=== PATIENT | female | born 1995 | race African-American/Black ===

== ENCOUNTER → 2016-12-05 | Outpatient (CLI) | payer OTHER ==
[2015-04-12 12:30] VITALS: BP 106/58
--- NOTE | 2016-12-05 14:26 | KCIC ---
EXAM: Obstetric sonogram. HISTORY: anatomy survey. TECHNIQUE: Sonographic imaging of a gravid uterus was performed. COMPARISON: None. FINDINGS: There is a single intrauterine fetus in cephalic presentation with a heart rate of 149 bpm. There is a posterior right lateral placenta without evidence of placenta previa. The amniotic fluid index is normal. The cervix measures 3.4 cm in length. The stomach, kidneys, bladder, brain, spine, extremities, facial profile, and heart are unremarkable. There is a three-vessel umbilical cord. There is body movement. The biparietal diameter corresponds with a gestational age of 18 weeks and 4 days. The head circumference corresponds with a gestational age of 18 weeks and 1 day. The abdominal circumference corresponds with a gestational age of 17 weeks and 5 days. The femoral length corresponds with a gestational age of 17 weeks and 6 days. The estimated gestational age based on combined ultrasound measurements is 18 weeks and 1 day and estimated weight is 8 ounces. IMPRESSION: Single intrauterine fetus with an estimated gestational age based on ultrasound measurements of 18 weeks and 1 day and heart rate of 149 bpm. Electronically signed by: Nicky Kothari MD (12/05/2016 2:23 PM) [place] [id number]
== END | disposition home or self-care (01) ==
LOC: KCIC US 13:23
PROVIDERS: ATTEND Obstetrics & Gynecology
DX: O26.842 Uterine size-date discrepancy, second trimester (principal); Z3A.18 18 weeks gestation of pregnancy
CPT/HCPCS: 76805

== ENCOUNTER 2018-08-01 02:49 | Emergency (ER) | payer OTHER ==
[~2018-08-01] VITALS: Ht 165.1 cm; Wt 95.3 kg
[~2018-08-01 02:49] MED LIST: DOCU-109 PO; IBUP-1060 PO; OXYC1TAB15 PO
[2018-08-01 03:22] LABS: BILIRUBIN,URINE NEGATIVE (NEG); CLARITY,URINE CLEAR; COLOR,URINE YELLOW; NITRITE,URINE NEGATIVE (NEG); PH,URINE 7.5; PROTEIN,URINE NEGATIVE (NEG-TRACE)
[2018-08-01 03:29] LABS: BASO % 0 % (0-3); EOS # 0.1 x10^3/uL (0.0-0.7); EOS % 1 % (0-3); HEMOGLOBIN 10.1 g/dL (12.0-15.5); LYMPH # 1.9 x10^3/uL (1.0-4.8); LYMPH % 20 % (24-48); MEAN CORPUSCULAR HEMOGLOBIN 21 pg (25-35); MEAN CORPUSCULAR HGB CONC 32 g/dL (31-37); MEAN CORPUSCULAR VOLUME 67 fL (79-100); MONO # 0.9 x10^3/uL (0.0-1.1); MONO % 9 % (0-9); NEUT # 6.6 x10^3uL (1.8-7.7); NEUT % 70 % (31-73); PLATELET COUNT 219 x10^3/uL (140-400); RED BLOOD COUNT 4.81 x10^6/uL (3.50-5.40); RED CELL DISTRIBUTION WIDTH 21.2 % (11.5-14.5); WHITE BLOOD COUNT 9.4 x10^3/uL (4.0-11.0)
[2018-08-01] MEDS ORDERED: IV NORMAL SALINE 1000ML BAG 1,000 ML IV SCH (03:30)
[2018-08-01] MEDS ORDERED: ONDANSETRON PF 4 MG/2 ML VIAL. IV ONE (03:30)
[2018-08-01 03:34] LABS: CALCIUM 8.6 mg/dL (8.5-10.1); CREATININE 0.6 mg/dL (0.6-1.0); GFR 149.9; POTASSIUM 3.3 mmol/L (3.5-5.1)
[2018-08-01 03:38] LABS: AMORPHOUS SEDIMENT,UR PRESENT /HPF; BACTERIA,URINE MANY /HPF (0-FEW); SQUAMOUS EPITHELIAL CELL,UR MANY /LPF
[2018-08-01 03:40] LABS: ALBUMIN 3.1 g/dL (3.4-5.0); ALBUMIN/GLOBULIN RATIO 0.6 (1.0-1.7); TOTAL BILIRUBIN 0.3 mg/dL (0.2-1.0); TOTAL PROTEIN 8.1 g/dL (6.4-8.2)
--- NOTE | 2018-08-01 04:37 | PHYS DOC ---
Past Medical History Past Medical History: No Pertinent History Past Surgical History: No Surgical History Alcohol Use: None Drug Use: None Adult General Chief Complaint Chief Complaint: ABDOMINAL PAIN IN HPI HPI Patient is a 22-year-old female who presents with the complaint of lower abdominal pain, headache, nausea and diarrhea that started yesterday. Patient states that she is about 12 weeks . She states the pain is located in her lower abdomen in the bilateral adnexal regions. She describes pain as sharp and stabbing in nature in her pelvis but describes the headache as a dull ache. She rates her pain to be a 9 out of 10. She denies any fever, chest pain, shortness of breath or back pain. Review of Systems Review of Systems Constitutional: Denies fever or chills [] Respiratory: Denies cough or shortness of breath [] Cardiovascular: No additional information not addressed in HPI [] GI: Complains of lower abdominal pain with nausea and diarrhea [] : Denies dysuria or hematuria [] Musculoskeletal: Denies back pain or joint pain [] Neurologic: Complains of headache without focal weakness or sensory changes [] All other systems were reviewed and found to be within normal limits, except as documented in this note. Current Medications Current Medications Current Medications Medications (Trade) Dose Ordered Sig/Bran Start Time Stop Time Status Last Admin Dose Admin Nalbuphine HCl (Nubain) 10 mg 1X STAT 08/01/18 04:55 08/01/18 04:56 UNV 08/01/18 04:59 10 MG Nitrofurantoin Macrocrystals (Macrobid) 100 mg 1X ONCE 08/01/18 05:00 08/01/18 05:01 UNV Ondansetron HCl (Zofran) 4 mg 1X ONCE 08/01/18 03:30 08/01/18 03:31 DC 08/01/18 03:39 4 MG Sodium Chloride 1,000 ml @ 1,000 mls/hr Q1H 08/01/18 03:30 08/01/18 04:29 DC 08/01/18 03:40 1,000 MLS/HR Allergies Allergies Allergies Coded Allergies Type Severity Reaction Last Updated Verified amoxicillin Allergy Intermediate hives 05/10/17 Yes Physical Exam Physical Exam Constitutional: Well developed, well nourished, no acute distress, non-toxic appearance. [] HENT: Normocephalic, atraumatic, bilateral external ears normal, oropharynx moist, no oral exudates, nose normal. [] Eyes: PERRLA, EOMI, conjunctiva normal, no discharge. [] Neck: Normal range of motion, no tenderness, supple, no stridor. [] Cardiovascular: Regular rate and rhythm[] Lungs & Thorax: Bilateral breath sounds clear to auscultation [] Abdomen: Bowel sounds normal, soft, with mild suprapubic and bilateral adnexal tenderness. [] Skin: Warm, dry, no erythema, no rash. [] Extremities: No tenderness, no cyanosis, no clubbing, ROM intact. [] Neurologic: Alert and oriented X 3, no focal deficits noted. [] Current Patient Data Vital Signs Vital Signs Date Time Temp Pulse Resp B/P (MAP) Pulse Ox O2 Delivery O2 Flow Rate FiO2 08/01/18 04:59 16 100 Room Air 08/01/18 03:00 97.9 86 107/98 (101) 97.9 Lab Values Laboratory Tests Test 08/01/18 03:00 08/01/18 03:08 08/01/18 03:18 Urine Collection Type Unknown Urine Color Yellow Urine Clarity Clear Urine pH 7.5 Urine Specific [place] 1.015 Urine Protein Negative mg/dL (NEG-TRACE) Urine Glucose (UA) Negative mg/dL (NEG) Urine Ketones (Stick) Negative mg/dL (NEG) Urine Blood Moderate (NEG) Urine Nitrite Negative (NEG) Urine Bilirubin Negative (NEG) Urine Urobilinogen Dipstick 1.0 mg/dL (0.2 mg/dL) Urine Leukocyte Esterase Large (NEG) Urine RBC 6-10 /HPF (0-2) Urine WBC 11-20 /HPF (0-4) Urine Squamous Epithelial Cells Many /LPF Urine Amorphous Sediment Present /HPF Urine Bacteria Many /HPF (0-FEW) Urine Mucus Slight /LPF POC Urine HCG, Qualitative Hcg positive (Negative) White Blood Count 9.4 x10^3/uL (4.0-11.0) Red Blood Count 4.81 x10^6/uL (3.50-5.40) Hemoglobin 10.1 g/dL (12.0-15.5) L Hematocrit 32.0 % (36.0-47.0) L Mean Corpuscular Volume 67 fL (79-100) L Mean Corpuscular Hemoglobin 21 pg (25-35) L Mean Corpuscular Hemoglobin Concent 32 g/dL (31-37) Red Cell Distribution Width 21.2 % (11.5-14.5) H Platelet Count 219 x10^3/uL (140-400) Neutrophils (%) (Auto) 70 % (31-73) Lymphocytes (%) (Auto) 20 % (24-48) L Monocytes (%) (Auto) 9 % (0-9) Eosinophils (%) (Auto) 1 % (0-3) Basophils (%) (Auto) 0 % (0-3) Neutrophils # (Auto) 6.6 x10^3uL (1.8-7.7) Lymphocytes # (Auto) 1.9 x10^3/uL (1.0-4.8) Monocytes # (Auto) 0.9 x10^3/uL (0.0-1.1) Eosinophils # (Auto) 0.1 x10^3/uL (0.0-0.7) Basophils # (Auto) 0.0 x10^3/uL (0.0-0.2) Platelet Estimate Adequate (ADEQUATE) Polychromasia Slight Hypochromasia Mod Anisocytosis Mod Microcytosis Marked Sodium Level 136 mmol/L (136-145) Potassium Level 3.3 mmol/L (3.5-5.1) L Chloride Level 101 mmol/L (98-107) Carbon Dioxide Level 24 mmol/L (21-32) Anion Gap 11 (6-14) Blood Urea Nitrogen 5 mg/dL (7-20) L Creatinine 0.6 mg/dL (0.6-1.0) Estimated GFR (Cockcroft-Gault) 149.9 BUN/Creatinine Ratio 8 (6-20) Glucose Level 93 mg/dL (70-99) Calcium Level 8.6 mg/dL (8.5-10.1) Total Bilirubin 0.3 mg/dL (0.2-1.0) Aspartate Amino Transferase (AST) 18 U/L (15-37) Alanine Aminotransferase (ALT) 23 U/L (14-59) Alkaline Phosphatase 58 U/L (46-116) Total Protein 8.1 g/dL (6.4-8.2) Albumin 3.1 g/dL (3.4-5.0) L Albumin/Globulin Ratio 0.6 (1.0-1.7) L Laboratory Tests 08/01/18 03:18 Laboratory Tests 08/01/18 03:18 EKG EKG [] Radiology/Procedures Radiology/Procedures [] Course & Med Decision Making Course & Med Decision Making Pertinent Labs and Imaging studies reviewed. (See chart for details) [] Dragon Disclaimer Dragon Disclaimer This electronic medical record was generated, in whole or in part, using a voice recognition dictation system. Departure Departure Impression: Primary Impression: UTI in Additional Impressions: Abdominal pain during Headache Disposition: HOME, SELF-CARE Condition: IMPROVED Referrals: NO PCP (PCP) Patient Instructions: Abdominal Pain During , Headache, FAQs, - Urinary Tract Infection Scripts Nitrofurantoin Monohyd/M-Cryst (MACROBID 100 MG CAPSULE) 100 Mg Capsule 1 CAP PO BID, #14 CAP Prov: JAEL DAVIS Jr. DO 08/01/18 Ondansetron Hcl (ZOFRAN) 4 Mg Tablet 4 MG PO PRN TID PRN for NAUSEA, #15 nausea/vomiting Prov: JAEL DAVIS Jr. DO 08/01/18 Problem Qualifiers Primary Impression: UTI in Trimester: first trimester Qualified Codes: O23.41 - Unspecified infection of urinary tract in , first trimester Additional Impressions: Abdominal pain during Trimester: first trimester Qualified Codes: O26.891 - Other specified related conditions, first trimester; R10.9 - Unspecified abdominal pain Headache Headache type: unspecified Headache chronicity pattern: unspecified pattern Intractability: not intractable Qualified Codes: R51 - Headache JAEL DAVIS Jr. DO Aug 01, 2018 04:36
[2018-08-01] MEDS ORDERED: NALBUPHINE 10 MG/ML AMPUL. IV STA (04:55)
[2018-08-01 05:00] LABS: PLT ESTIMATE ADEQUATE (ADEQUATE)
[2018-08-01] MEDS ORDERED: NALBUPHINE 10 MG/ML AMPUL. IV ONE (05:00)
[2018-08-01 05:01] LABS: ANISOCYTOSIS MOD; HYPOCHROMIA MOD; MICROCYTOSIS MARKED; POLYCHROMASIA SLIGHT
[2018-08-01] MEDS ORDERED: ONDA4TAB7 PO (05:12)
[2018-08-01] MEDS ORDERED: NITR100C62 PO (05:12)
[2018-08-01] MEDS ORDERED: NITROFURANTOIN MONOHYD/M-CRYST 100 MG CAPSULE. PO ONE (05:30)
[2018-08-01 05:34] VITALS: BP 101/69
== END 2018-08-01 05:45 | disposition home or self-care (01) ==
LOC: ER 02:49
DX: O23.41 Unspecified infection of urinary tract in pregnancy, first trimester (principal); R11.0 Nausea; R51 Headache; R19.7 Diarrhea, unspecified; Z88.1 Allergy status to other antibiotic agents; Z3A.12 12 weeks gestation of pregnancy
CPT/HCPCS: 36415; 80053; 81001; 81025; 85025; 87086; 96361; 96374; 96375; 99283; J2300; J2405; J7030

== ENCOUNTER 2020-07-13 17:59 | Observation (INO) | payer OTHER ==
[~2020-07-13] VITALS: Ht 157.5 cm; Wt 75.4 kg
[~2020-07-13 17:59] MED LIST changes: +NITR100C62 PO; +ONDA4TAB7 PO
[2020-07-13] MEDS ORDERED: IV NORMAL SALINE 1000ML BAG 1,000 ML IV SCH (19:00)
[2020-07-13 19:39] LABS: BILIRUBIN,URINE NEGATIVE (NEG); CLARITY,URINE CLEAR; COLOR,URINE YELLOW; NITRITE,URINE NEGATIVE (NEG); PH,URINE 6.5 (<5.0-8.0); PROTEIN,URINE NEGATIVE (NEG-TRACE); UROBILINOGEN,URINE 0.2 mg/dL (0.2 mg/dL)
[2020-07-13 19:46] LABS: BACTERIA,URINE MODERATE /HPF (0-FEW); RBC,URINE 0 /HPF (0-2)
[2020-07-13 20:04] LABS: BASO % 0 % (0-3); EOS % 0 % (0-3); HEMATOCRIT 27.3 % (36.0-47.0); HEMOGLOBIN 8.2 g/dL (12.0-15.5); LYMPH % 16 % (24-48); MEAN CORPUSCULAR HEMOGLOBIN 18 pg (25-35); MEAN CORPUSCULAR HGB CONC 30 g/dL (31-37); MEAN CORPUSCULAR VOLUME 60 fL (79-100); MONO # 0.5 x10^3/uL (0.0-1.1); MONO % 4 % (0-9); NEUT # 9.9 x10^3/uL (1.8-7.7); NEUT % 80 % (31-73); PLATELET COUNT 279 x10^3/uL (140-400); RED BLOOD COUNT 4.54 x10^6/uL (3.50-5.40); WHITE BLOOD COUNT 12.4 x10^3/uL (4.0-11.0)
--- NOTE | 2020-07-13 20:25 | PHYS DOC ---
Past Medical History Past Medical History: No Pertinent History (FLORI LORENZO VINEYARDIST) Past Surgical History: No Surgical History (FLORI LORENZO VINEYARDIST) Smoking Status: Never Smoker Alcohol Use: Occasionally Drug Use: None (FLORI LORENZO APRN) General Adult EDM: Chief Complaint: ABDOMINAL PAIN HPI: HPI: Patient is a 24 year old female who presents with right lower quadrant pain with some diarrhea that started around 1:00pm today. Patient states at times it is sharp. She states is intermittent. Nothing makes it worse or better. Today patient's test is positive. Her last menstrual period was July 06. She rates her pain an 8 out of 10 when it occurs. Denies abdominal pain, nausea, chest pain, shortness of air, fever, diarrhea, headache, dizziness, vision changes, numbness or tingling. (FLORI LORENZO VINEYARDIST) Review of Systems: Review of Systems: Constitutional: Denies fever or chills. [] Eyes: Denies change in visual acuity. [] HENT: Denies nasal congestion or sore throat. [] Respiratory: Denies cough or shortness of breath. [] Cardiovascular: Denies chest pain or edema. [] GI: + Right lower quadrant abdominal pain, denies nausea, vomiting, bloody stools. + diarrhea. [] : Denies dysuria. [] Musculoskeletal: Denies back pain or joint pain. [] Integument: Denies rash. [] Neurologic: Denies headache, focal weakness or sensory changes. [] Endocrine: Denies polyuria or polydipsia. [] Lymphatic: Denies swollen glands. [] Psychiatric: Denies depression or anxiety. [] (FLORI LORENZO VINEYARDIST) Heart Score: Risk Factors: Risk Factors: DM, Current or recent (<one month) smoker, HTN, HLP, family history of CAD, obesity. Risk Scores: Score 0 - 3: 2.5% MACE over next 6 weeks - Discharge Home Score 4 - 6: 20.3% MACE over next 6 weeks - Admit for Clinical Observation Score 7 - 10: 72.7% MACE over next 6 weeks - Early Invasive Strategies (FLORI LORENZO VINEYARDIST) Current Medications: Current Medications Medications (Trade) Dose Ordered Sig/Bran Start Time Stop Time Status Last Admin Dose Admin Sodium Chloride 1,000 ml @ 1,000 mls/hr Q1H 07/13/20 19:00 07/13/20 19:59 DC 07/13/20 19:49 1,000 MLS/HR (FLORI LORENZO APRN) Allergies: Allergies: Allergies Coded Allergies Type Severity Reaction Last Updated Verified amoxicillin Allergy Intermediate hives 05/10/17 Yes (FLORI LORENZO APRN) Physical Exam: PE: Constitutional: Well developed, well nourished, no acute distress, non-toxic appearance. [] HENT: Normocephalic, atraumatic, bilateral external ears normal, oropharynx moist, no oral exudates, nose normal. [] Eyes: PERRLA, EOMI, conjunctiva normal, no discharge. [] Neck: Normal range of motion, no tenderness, supple, no stridor. [] Cardiovascular:Heart rate regular rhythm, no murmur [] Lungs & Thorax: Bilateral breath sounds clear to auscultation [] Abdomen: Bowel sounds normal, soft, no tenderness, no masses, no pulsatile masses. [] Skin: Warm, dry, no erythema, no rash. [] Back: No tenderness, no CVA tenderness. [] Extremities: No tenderness, no cyanosis, no clubbing, ROM intact, no edema. [] Neurologic: Alert and oriented X 3, normal motor function, normal sensory function, no focal deficits noted. [] Psychologic: Affect normal, judgement normal, mood normal. Normal physical exam [] (FLORI LORENZO APRN) Current Patient Data: Labs: Laboratory Tests Test 07/13/20 18:43 07/13/20 18:49 Urine Collection Type Unknown Urine Color Yellow Urine Clarity Clear Urine pH 6.5 (<5.0-8.0) Urine Specific [place] 1.020 (1.000-1.030) Urine Protein Negative mg/dL (NEG-TRACE) Urine Glucose (UA) Negative mg/dL (NEG) Urine Ketones (Stick) Trace mg/dL (NEG) Urine Blood Negative (NEG) Urine Nitrite Negative (NEG) Urine Bilirubin Negative (NEG) Urine Urobilinogen Dipstick 0.2 mg/dL (0.2 mg/dL) Urine Leukocyte Esterase Negative (NEG) Urine RBC 0 /HPF (0-2) Urine WBC 1-4 /HPF (0-4) Urine Squamous Epithelial Cells Mod /LPF Urine Bacteria Moderate /HPF (0-FEW) Urine Mucus Mod /LPF POC Urine HCG, Qualitative Hcg positive (Negative) Vital Signs: Vital Signs Date Time Temp Pulse Resp B/P (MAP) Pulse Ox O2 Delivery O2 Flow Rate FiO2 07/13/20 19:00 98.3 86 16 124/72 (89) 100 Room Air 98.3 (FLORI LORENZO APRN) EKG: EKG: [] (FLORI LORENZO APRN) Radiology/Procedures: Radiology/Procedures: [] Impression: [facility] [id number] [place] [address] IMAGING REPORT Signed PATIENT: XENA MAJOR ACCOUNT: [id number] : 1995 LOCATION: ER AGE: 24 SEX: F EXAM STATUS: REG ER ORD. PHYSICIAN: FLORI LORENZO APRN REASON: RLQ pain, + PROCEDURE: OB <14 WKS W/TV Study: US OB <14 WKS +TV DATE: 07/13/2020 7:28 PM INDICATION: Right lower quadrant pain. Positive test. COMPARISON: 02/27/2015 TECHNIQUE: Transabdominal and transvaginal ultrasonography of the pelvis was performed. Color Doppler and duplex were utilized as appropriate. FINDINGS: The uterus measures 7.4 x 5.8 x 4.9 cm. No uterine parenchymal mass. No intrauterine gestational sac is identified. Small volume complex fluid within the endometrial canal. The left ovary measures 4.3 x 3.2 x 3.0 cm and the left ovary 3.6 x 1.8 x 1.6 cm. Doppler flow is maintained to both ovaries. Left ovarian cyst measuring 2.7 x 2.3 cm. No peripheral Doppler flow. Adjacent smaller cysts/follicles. No complex cyst or mass in the right ovary. Adjacent to the right ovary a rounded focus of heterogeneous echogenicity measures 1.9 x 1.6 x 1.8 cm, image 49. Moderate volume complex fluid within the deep pelvis. IMPRESSION: No intrauterine gestational sac is identified. Small volume complex fluid within the endometrial canal and moderate volume complex fluid within the pelvis. Left ovarian cyst without findings concerning for an ectopic on the left. On the right, rounded structure measuring up to 1.9 cm is located adjacent to the ovary and its etiology is uncertain. This could represent a segment of small bowel and is not diagnostic of an ectopic of thick walled appendix on the submitted images. Correlation is needed with beta-HCG levels to help determine if a gestational sac would be expected to be seen. Electronically signed by: SHANNAN RAY MD (07/13/2020 8:53 PM) [facility] DICTATED and SIGNED BY: SHANNAN ARY MD DATE: 07/13/[id number] 0 (FLORI LORENZO APRN) Course & Med Decision Making: Course & Med Decision Making Pertinent Labs and Imaging studies reviewed. (See chart for details) See HPI. Alert and oriented x4. Ambulatory with steady gait. Skin pink warm and dry. Abdomen is soft and nontender. No CVA tenderness. Urine is positive. Speaks in full clear sentences. Patient denies any sexually transmitted disease concerns or abnormal vaginal discharge. She denies any vaginal bleeding at this time. Patient denies wanting any treatment prophylactically for sexually transmitted diseases today. Pelvic Exam: Family Development Extension Specialist present Abdomen: Nontender External Genitalia: Normal Skin Speculum: Normal vaginal mucosa, white cervical discharge Bimanual: No adnexal masses or tenderness, No CMT No rebound tenderness. US shows: No intrauterine gestational sac is identified. Small volume complex fluid within the endometrial canal and moderate volume complex fluid within the pelvis. Left ovarian cyst without findings concerning for an ectopic on the left. On the right, rounded structure measuring up to 1.9 cm is located adjacent to the ovary and its etiology is uncertain. This could represent a segment of small bowel and is not diagnostic of an ectopic of thick walled appendix on the submitted images. Correlation is needed with beta-HCG levels to help determine if a gestational sac would be expected to be seen. I spoke to the radiologist Dr. Esposito who looked back over this ultrasound and he states that a ectopic cannot be ruled out. I spoke to Dr. Alarcon and he states to admit the patient for 24-hour observation for pain control. He states to repeat a hemoglobin hematocrit in the morning. He states to keep the patient n.p.o. (FLORI LORENZO APRN) Dragon Disclaimer: Sue Disclaimer: This electronic medical record was generated, in whole or in part, using a voice recognition dictation system. (FLORI LORENZO APRN) Departure Departure Impression: Primary Impression: Abdominal pain Qualified Codes: R10.31 - Right lower quadrant pain Additional Impression: Abnormal pelvic ultrasound Disposition: ADMITTED INPT THIS HOSP Admitting Physician: ARIE (FLORI LORENZO APRN) Condition: STABLE Referrals: NO PCP (PCP) Attending Signature Attending Signature I have reviewed the PA/PLUCK SEPARATOR's note and plan of care. I was available for consultation as needed during the patient's visit in the emergency department. I agree with the clinical impression, plan, and disposition. (TYLER BAGLEY DO) FLORI LORENZO APRN Jul 13, 2020 20:25 TYLER BAGLEY DO Jul 14, 2020 00:05
[2020-07-13 20:37] LABS: CREATININE 0.8 mg/dL (0.6-1.0); GFR 105.8; POTASSIUM 3.7 mmol/L (3.5-5.1)
[2020-07-13 20:43] LABS: ALBUMIN 3.8 g/dL (3.4-5.0); ALBUMIN/GLOBULIN RATIO 0.9 (1.0-1.7); TOTAL BILIRUBIN 0.6 mg/dL (0.2-1.0); TOTAL PROTEIN 8.1 g/dL (6.4-8.2)
[2020-07-13 20:45] LABS: ANISOCYTOSIS SLIGHT; HYPOCHROMIA MARKED; MICROCYTOSIS MARKED; PLT ESTIMATE ADEQUATE (ADEQUATE); POIKILOCYTOSIS SLIGHT
[2020-07-13 20:46] LABS: OVALOCYTES FEW
--- NOTE | 2020-07-13 20:56 | RAD ---
Study: US OB <14 WKS +TV DATE: 07/13/2020 7:28 PM INDICATION: Right lower quadrant pain. Positive test. COMPARISON: 02/27/2015 TECHNIQUE: Transabdominal and transvaginal ultrasonography of the pelvis was performed. Color Doppler and duplex were utilized as appropriate. FINDINGS: The uterus measures 7.4 x 5.8 x 4.9 cm. No uterine parenchymal mass. No intrauterine gestational sac is identified. Small volume complex fluid within the endometrial canal. The left ovary measures 4.3 x 3.2 x 3.0 cm and the left ovary 3.6 x 1.8 x 1.6 cm. Doppler flow is gabriela ntained to both ovaries. Left ovarian cyst measuring 2.7 x 2.3 cm. No peripheral Doppler flow. Adjace nt smaller cysts/follicles. No complex cyst or mass in the right ovary. Adjacent to the right ovary a rounded focus of heterogeneous echogenicity measures 1.9 x 1.6 x 1.8 cm, image 49. Moderate volume complex fluid within the deep pelvis. IMPRESSION: No intrauterine gestational sac is identified. Small volume complex fluid within the endometrial estella l and moderate volume complex fluid within the pelvis. Left ovarian cyst without findings concerning for an ectopic on the left. On the right, rounded structure measuring up to 1.9 cm is located adjacen t to the ovary and its etiology is uncertain. This could represent a segment of small bowel and is no t diagnostic of an ectopic of thick walled appendix on the submitted images. Correlation is needed wi th beta-HCG levels to help determine if a gestational sac would be expected to be seen. Electronically signed by: SHANNAN RAY MD (07/13/2020 8:53 PM) [facility]
[2020-07-13] MEDS ORDERED: ONDANSETRON PF 4 MG/2 ML VIAL. IV PRN (22:15)
[2020-07-13 23:40] VITALS: BP 144/59
--- NOTE | 2020-07-13 23:40 | NUR ---
Admit from ER. A&O, in NAD. No major medical/surgical hx. Had 3 pregnancies w/ 3 vaginal births. Oriented to room.
[2020-07-14] MEDS: fentaNYL PF VIAL 100 MCG/2 ML VIAL IV PRN ×2 (00:40→07:41)
[2020-07-14 06:37] VITALS: BP 110/50
--- NOTE | 2020-07-14 06:38 | NUR ---
Slept well all noc. Fentanyl given x1 this shift.
[2020-07-14] MEDS ORDERED: IV RINGERS,LACTATED 1000ML 1,000 ML IV SCH (08:30)
--- NOTE | 2020-07-14 08:31 | PDOC1 ---
History and Physical Date of Admission Date of Admission DATE: 07/14/20 TIME: 08:27 Identification/Chief Complaint Chief Complaint RLQ pain Source Source: Chart review, Patient History of Present Illness History of Present Illness 24 y/o @ 4 wks gestation presented with RLQ pain that started yesterday and continued to worsen. Hgb 8.9 and HCG 195. Pain has resolved this am. Will check repeat hgb. Sono demonstrated possible ruptured ovarian cyst. Past Surgical History Past Surgical History: No pertinent history Current Problem List Problem List Problems Medical Problems: (1) Abdominal pain Status: Acute (2) Abnormal pelvic ultrasound Status: Acute Current Medications Current Medications Current Medications Sodium Chloride 1,000 ml @ 1,000 mls/hr Q1H IV Last administered on 07/13/20at 19:49; Start 07/13/20 at 19:00; Stop 07/13/20 at 19:59; Status DC Ondansetron HCl (Zofran) 4 mg PRN Q8HRS PRN IV NAUSEA/VOMITING 1ST CHOICE; Start 07/13/20 at 22:15; Stop 07/14/20 at 22:14 Fentanyl Citrate (Fentanyl 2ml Vial) 50 mcg PRN Q1HR PRN IV SEVERE PAIN 7-10 Last administered on 07/14/20at 07:41; Start 07/13/20 at 22:15; Stop 07/14/20 at 22:14 Ringer's Solution 1,000 ml @ 125 mls/hr Q8H IV ; Start 07/14/20 at 08:30 Active Scripts Active Macrobid 100 Mg Capsule (Nitrofurantoin Monohyd/M-Cryst) 100 Mg Capsule 1 Cap PO BID Zofran (Ondansetron Hcl) 4 Mg Tablet 4 Mg PO PRN TID PRN nausea/vomiting Percocet 5-325 Mg Tablet (Oxycodone/Acetaminophen) 1 Each Tablet 1 Tab PO PRN Q6HRS PRN Ibuprofen 800 Mg Tablet 800 Mg PO PRN Q6HRS PRN Colace (Docusate Sodium) 100 Mg Capsule 100 Mg PO BID Reported No Known Medications Prior To Admisstion (Info) Each 1 Each MC Allergies Allergies: Coded Allergies: amoxicillin (Verified Allergy, Intermediate, hives, 05/10/17) ROS General: YES: Appetite; No: Chills, Night Sweats, Fatigue, Malaise, Other PSYCHOLOGICAL ROS: No: Anxiety, Behavioral Disorder, Concentration difficultie, Decreased libido, Depression, Disorientation, Hallucinations, Hostility, Irritablity, Memory difficulties, Mood Swings, Obsessive thoughts, Physical abuse, Sexual abuse, Sleep disturbances, Suicidal ideation, Other Eyes: No Blurry vision, No Decreased vision, No Double vision, No Dry eyes, No Excessive tearing, No Eye Pain, No Itchy Eyes, No Loss of vision, No Photophobia, No Scotomata, No Uses contacts, No Uses glasses, No Other HEENT: No: Heacaches, Visual Changes, Hearing change, Nasal congestion, Nasal discharge, Oral lesions, Sinus pain, Sore Throat, Epistaxis, Sneezing, Snoring, Tinnitus, Vertigo, Vocal changes, Other ALLERGY AND IMMUNOLOGY: No: Hives, Insect Bite Sensitivity, Itchy/Watery Eyes, Nasal Congestion, Post Nasal Drip, Seasonal Allergies, Other Hematological and Lymphatic: No: Bleeding Problems, Blood Clots, Blood Transfusions, Brusing, Night Sweats, Pallor, Swollen Lymph Nodes, Other Breast: No New/Changing Breast Lumps, No Nipple changes, No Nipple discharge, No Other Respiratory: No: Cough, Hemoptysis, Orthopnea, Pleuritic Pain, Shortness of breath, SOB with excertion, Sputum Changes, Stridor, Tachypnea, Wheezing, Other Cardiovascular: No Chest Pain, No Palpitations, No Orthopnea, No Paroxysmal Noc. Dyspnea, No Edema, No Lt Headedness, No Other Gastrointestinal: Yes Abdominal Pain; No Nausea, No Vomiting, No Diarrhea, No Constipation, No Melena, No Hematochezia, No Other Genitourinary: No Dysuria, No Frequency, No Incontinence, No Hematuria, No Retention, No Discharge, No Urgency, No Pain, No Flank Pain, No Other, No , No , No , No , No , No , No Musculoskeletal: No Gait Disturbance, No Joint Pain, No Joint Stiffness, No Joint Swelling, No Muscle Pain, No Muscular Weakness, No Pain In:, No Swelling In:, No Other Neurological: No Behavorial Changes, No Bowel/Bladder ControlChng, No Confusion, No Dizziness, No Gait Disturbance, No Headaches, No Impaired Coord/balance, No Memory Loss, No Numbness/Tingling, No Seizures, No Speech Problems, No Tremors, No Visual Changes, No Weakness, No Other Physical Exam General: Alert, Oriented X3, Cooperative, No acute distress HEENT: Atraumatic, PERRLA Lungs: Clear to auscultation Heart: S1S2 Abdomen: Normal bowel sounds, Soft, No tenderness, No masses, Other (no rebound tenderness) Psych/Mental Status: Mental status NL Vitals Vitals Vital Signs Date Time Temp Pulse Resp B/P (MAP) Pulse Ox O2 Delivery O2 Flow Rate FiO2 07/14/20 07:41 100 07/14/20 06:37 99.1 88 20 110/50 (70) Room Air 99.1 Labs Labs Laboratory Tests Test 07/13/20 18:43 07/13/20 18:49 07/13/20 19:45 07/13/20 19:49 Urine Collection Type Unknown Urine Color Yellow Urine Clarity Clear Urine pH 6.5 (<5.0-8.0) Urine Specific [place] 1.020 (1.000-1.030) Urine Protein Negative mg/dL (NEG-TRACE) Urine Glucose (UA) Negative mg/dL (NEG) Urine Ketones (Stick) Trace mg/dL (NEG) Urine Blood Negative (NEG) Urine Nitrite Negative (NEG) Urine Bilirubin Negative (NEG) Urine Urobilinogen Dipstick 0.2 mg/dL (0.2 mg/dL) Urine Leukocyte Esterase Negative (NEG) Urine RBC 0 /HPF (0-2) Urine WBC 1-4 /HPF (0-4) Urine Squamous Epithelial Cells Mod /LPF Urine Bacteria Moderate /HPF (0-FEW) Urine Mucus Mod /LPF Bedside Urine HCG, Qualitative Hcg positive (Negative) Sodium Level 137 mmol/L (136-145) Potassium Level 3.7 mmol/L (3.5-5.1) Chloride Level 102 mmol/L (98-107) Carbon Dioxide Level 23 mmol/L (21-32) Anion Gap 12 (6-14) Blood Urea Nitrogen 10 mg/dL (7-20) Creatinine 0.8 mg/dL (0.6-1.0) Estimated GFR (Cockcroft-Gault) 105.8 BUN/Creatinine Ratio 13 (6-20) Glucose Level 125 mg/dL (70-99) Calcium Level 9.0 mg/dL (8.5-10.1) Total Bilirubin 0.6 mg/dL (0.2-1.0) Aspartate Amino Transf (AST/SGOT) 18 U/L (15-37) Alanine Aminotransferase (ALT/SGPT) 26 U/L (14-59) Alkaline Phosphatase 56 U/L (46-116) Total Protein 8.1 g/dL (6.4-8.2) Albumin 3.8 g/dL (3.4-5.0) Albumin/Globulin Ratio 0.9 (1.0-1.7) Lipase 83 U/L (73-393) White Blood Count 12.4 x10^3/uL (4.0-11.0) Red Blood Count 4.54 x10^6/uL (3.50-5.40) Hemoglobin 8.2 g/dL (12.0-15.5) Hematocrit 27.3 % (36.0-47.0) Mean Corpuscular Volume 60 fL (79-100) Mean Corpuscular Hemoglobin 18 pg (25-35) Mean Corpuscular Hemoglobin Concent 30 g/dL (31-37) Red Cell Distribution Width 20.0 % (11.5-14.5) Platelet Count 279 x10^3/uL (140-400) Neutrophils (%) (Auto) 80 % (31-73) Lymphocytes (%) (Auto) 16 % (24-48) Monocytes (%) (Auto) 4 % (0-9) Eosinophils (%) (Auto) 0 % (0-3) Basophils (%) (Auto) 0 % (0-3) Neutrophils # (Auto) 9.9 x10^3/uL (1.8-7.7) Lymphocytes # (Auto) 2.0 x10^3/uL (1.0-4.8) Monocytes # (Auto) 0.5 x10^3/uL (0.0-1.1) Eosinophils # (Auto) 0.0 x10^3/uL (0.0-0.7) Basophils # (Auto) 0.0 x10^3/uL (0.0-0.2) Platelet Estimate Adequate (ADEQUATE) Hypochromasia Marked Poikilocytosis Slight Anisocytosis Slight Microcytosis Marked Ovalocytes Few Maternal Serum HCG Beta Subunit 194 mIU/mL (0-5) Laboratory Tests Test 07/13/20 18:43 07/13/20 18:49 07/13/20 19:45 07/13/20 19:49 Urine Collection Type Unknown Urine Color Yellow Urine Clarity Clear Urine pH 6.5 (<5.0-8.0) Urine Specific [place] 1.020 (1.000-1.030) Urine Protein Negative mg/dL (NEG-TRACE) Urine Glucose (UA) Negative mg/dL (NEG) Urine Ketones (Stick) Trace mg/dL (NEG) Urine Blood Negative (NEG) Urine Nitrite Negative (NEG) Urine Bilirubin Negative (NEG) Urine Urobilinogen Dipstick 0.2 mg/dL (0.2 mg/dL) Urine Leukocyte Esterase Negative (NEG) Urine RBC 0 /HPF (0-2) Urine WBC 1-4 /HPF (0-4) Urine Squamous Epithelial Cells Mod /LPF Urine Bacteria Moderate /HPF (0-FEW) Urine Mucus Mod /LPF Bedside Urine HCG, Qualitative Hcg positive (Negative) Sodium Level 137 mmol/L (136-145) Potassium Level 3.7 mmol/L (3.5-5.1) Chloride Level 102 mmol/L (98-107) Carbon Dioxide Level 23 mmol/L (21-32) Anion Gap 12 (6-14) Blood Urea Nitrogen 10 mg/dL (7-20) Creatinine 0.8 mg/dL (0.6-1.0) Estimated GFR (Cockcroft-Gault) 105.8 BUN/Creatinine Ratio 13 (6-20) Glucose Level 125 mg/dL (70-99) Calcium Level 9.0 mg/dL (8.5-10.1) Total Bilirubin 0.6 mg/dL (0.2-1.0) Aspartate Amino Transf (AST/SGOT) 18 U/L (15-37) Alanine Aminotransferase (ALT/SGPT) 26 U/L (14-59) Alkaline Phosphatase 56 U/L (46-116) Total Protein 8.1 g/dL (6.4-8.2) Albumin 3.8 g/dL (3.4-5.0) Albumin/Globulin Ratio 0.9 (1.0-1.7) Lipase 83 U/L (73-393) White Blood Count 12.4 x10^3/uL (4.0-11.0) Red Blood Count 4.54 x10^6/uL (3.50-5.40) Hemoglobin 8.2 g/dL (12.0-15.5) Hematocrit 27.3 % (36.0-47.0) Mean Corpuscular Volume 60 fL (79-100) Mean Corpuscular Hemoglobin 18 pg (25-35) Mean Corpuscular Hemoglobin Concent 30 g/dL (31-37) Red Cell Distribution Width 20.0 % (11.5-14.5) Platelet Count 279 x10^3/uL (140-400) Neutrophils (%) (Auto) 80 % (31-73) Lymphocytes (%) (Auto) 16 % (24-48) Monocytes (%) (Auto) 4 % (0-9) Eosinophils (%) (Auto) 0 % (0-3) Basophils (%) (Auto) 0 % (0-3) Neutrophils # (Auto) 9.9 x10^3/uL (1.8-7.7) Lymphocytes # (Auto) 2.0 x10^3/uL (1.0-4.8) Monocytes # (Auto) 0.5 x10^3/uL (0.0-1.1) Eosinophils # (Auto) 0.0 x10^3/uL (0.0-0.7) Basophils # (Auto) 0.0 x10^3/uL (0.0-0.2) Platelet Estimate Adequate (ADEQUATE) Hypochromasia Marked Poikilocytosis Slight Anisocytosis Slight Microcytosis Marked Ovalocytes Few Maternal Serum HCG Beta Subunit 194 mIU/mL (0-5) VTE Prophylaxis Ordered VTE Prophylaxis Devices: No VTE Pharmacological Prophylaxi: No Assessment/Plan Assessment/Plan A: RLQ pain Early gestation P: Repeat hgb. If stable, then d/c home with f/u in clinic. If hgb decreased significantly, then proceed with surgery. Justifications for Admission Other Justification EDA STEPHENS Jr, MD Jul 14, 2020 08:31
[2020-07-14 09:13] LABS: BASO % 0 % (0-3); EOS % 1 % (0-3); HEMATOCRIT 26.2 % (36.0-47.0); HEMOGLOBIN 7.8 g/dL (12.0-15.5); LYMPH # 2.2 x10^3/uL (1.0-4.8); LYMPH % 26 % (24-48); MEAN CORPUSCULAR HEMOGLOBIN 18 pg (25-35); MEAN CORPUSCULAR HGB CONC 30 g/dL (31-37); MEAN CORPUSCULAR VOLUME 60 fL (79-100); MONO # 0.5 x10^3/uL (0.0-1.1); MONO % 6 % (0-9); NEUT # 5.5 x10^3/uL (1.8-7.7); NEUT % 66 % (31-73); PLATELET COUNT 288 x10^3/uL (140-400); RED BLOOD COUNT 4.35 x10^6/uL (3.50-5.40); WHITE BLOOD COUNT 8.2 x10^3/uL (4.0-11.0)
--- NOTE | 2020-07-14 09:39 | DISCH ---
DISCHARGE INSTRUCTIONS Condition on Discharge Condition on Discharge: Stable Activity After Discharge Activity Instructions for Disc: Activity as tolerated Lifting Instructions after Dis: No heavy lifting Driving Instructions after Dis: Do not drive today Diet after Discharge Diet after Discharge: Regular Contacting the DRCathryn after DC Call your doctor for: Concerns you may have Follow-Up Follow up with: Dr. Alarcon in 3 week EDA ALARCON Jr, MD Jul 14, 2020 09:39
[2020-07-14 11:24] VITALS: BP 124/75
--- NOTE | 2020-07-14 11:28 | NUR ---
Patient left around 1128. Discharge education completed by this nurse and Dr Alarcon prior to discharge. IV discontinued without complications. Patient is to follow up with the doctor in three weeks and is aware. No concerns noted at discharge.
[2020-07-15 20:36] LABS: GC PROBE Negative (Negative)
== END 2020-07-14 11:30 | disposition home or self-care (01) ==
LOC: ER 17:59 → 4 SOUTHEST 22:13
PROVIDERS: ADMIT Obstetrics & Gynecology; ATTEND Obstetrics & Gynecology
DX: O34.81 Maternal care for other abnormalities of pelvic organs, first trimester (principal); O26.891 Other specified pregnancy related conditions, first trimester; R10.31 Right lower quadrant pain; O99.891 Other specified diseases and conditions complicating pregnancy; N83.202 Unspecified ovarian cyst, left side; Z3A.01 Less than 8 weeks gestation of pregnancy; Z79.899 Other long term (current) drug therapy
CPT/HCPCS: 36415; 76801; 76817; 80053; 81001; 81025; 83690; 84702; 85025; 86850; 86900; 86901; 87086; 87491; 87591; 96361; 96374; 96376; 99284; G0378; J3010; J7030; J7120; Q0111; G0379